=== PATIENT | male | born 1975 | race African-American/Black ===

== ENCOUNTER 2018-08-18 07:20 | Emergency (ER) | payer MEDICAID ==
[~2018-08-18] VITALS: Ht 177.8 cm; Wt 100.0 kg
--- NOTE | 2018-08-18 07:43 | NUR ---
DR. PITTMAN AT BEDSIDE.
[2018-08-18] MEDS ORDERED: proCHLORperazine 10 MG/2 ml inj IV ONE (07:55)
[2018-08-18] MEDS ORDERED: normal saline 1000ML IV soln IVB ONE (07:55)
[2018-08-18] MEDS ORDERED: morphine 4 MG/ML inj SYRINge IV ONE (07:55)
[2018-08-18] MEDS ORDERED: LORazepam 2 mg/ml vial IV ONE (07:55)
[2018-08-18] MEDS ORDERED: pantoprazole 40 MG vial IV ONE (07:55)
[2018-08-18 08:06] LABS: BASOPHILS # (AUTO) 0.1 X10'3 (0-0.2); BASOPHILS % (AUTO) 1.1 % (0-1); EOSINOPHILS # (AUTO) 0.1 X10'3 (0-0.9); EOSINOPHILS % (AUTO) 0.9 % (0-6); HEMATOCRIT 49.7 % (42.0-52.0); HEMOGLOBIN 16.5 g/dl (14.0-17.9); LYMPHOCYTES % (AUTO) 27.8 % (21-51); MEAN CORPUSCULAR HEMOGLOBIN 30.5 PG (27.0-31.0); MEAN CORPUSCULAR HGB CONC 33.2 % (33.0-36.5); MEAN CORPUSCULAR VOLUME 91.9 FL (78-98); MEAN PLATELET VOLUME 6.7 FL (7.4-10.4); MONOCYTES # (AUTO) 1.1 X10'3 (0-0.9); MONOCYTES % (AUTO) 9.8 % (2-12); NEUTROPHILS # (AUTO) 6.6 X10'3 (1.8-7.7); NEUTROPHILS % (AUTO) 60.4 % (42-75); PLATELET COUNT 366 X10'3 (140-440); RED CELL DISTRIBUTION WIDTH 12.9 % (11.5-14.5); WHITE BLOOD COUNT 10.9 X10'3 (4.5-11.0)
[2018-08-18 08:12] LABS: LIPASE 118 U/L (73-393)
[2018-08-18 09:34] LABS: ALANINE AMINOTRANSFERASE 38 U/L (12-78); ALBUMIN 3.6 G/DL (3.4-5.0); ALKALINE PHOSPHATASE 59 IU/L (46-116); ANION GAP 14 (8-16); ASPARTATE AMINO TRANSFERASE 25 U/L (10-37); BILIRUBIN,TOTAL 0.6 MG/DL (0.1-1.0); BLOOD UREA NITROGEN 9 MG/DL (7-18); BUN/CREATININE RATIO 7.6 (5.4-32.0); CALCIUM 8.8 MG/DL (8.5-10.1); CHLORIDE 103 MMOL/L (99-107); CREATININE 1.18 MG/DL (0.60-1.10); GLUCOSE 123 MG/DL (70-104); POTASSIUM 3.5 MMOL/L (3.5-5.1); SODIUM 140 MMOL/L (135-145); TOTAL CARBON DIOXIDE 23.2 MMOL/L (24-32); TOTAL PROTEIN 7.2 G/DL (6.4-8.2); eGFR 82 ML/MIN
[2018-08-18] MEDS ORDERED: PANT-47 PO (09:56)
[2018-08-18] MEDS ORDERED: ONDA8TAB13 PO (09:56)
[2018-08-18] MEDS ORDERED: SUCR1TAB PO (09:56)
[2018-08-18 10:19] VITALS: BP 155/81
== END 2018-08-18 10:21 | disposition home or self-care (01) ==
LOC: ER 07:21
DX: R10.11 Right upper quadrant pain (principal); R11.0 Nausea; I10 Essential (primary) hypertension; K21.9 Gastro-esophageal reflux disease without esophagitis; F12.90 Cannabis use, unspecified, uncomplicated; F17.200 Nicotine dependence, unspecified, uncomplicated; Z79.899 Other long term (current) drug therapy
CPT/HCPCS: 36415; 80053; 83690; 85025; 96374; 96375; 99283; C9113; J0780; J2060; J2270; J7030